=== PATIENT | female | born 2000 | race Caucasian/White ===

== ENCOUNTER 2018-10-29 16:34 | Emergency (ER) | payer BC ==
[2018-10-29] MEDS ORDERED: Ibuprofen TAB* 600 MG PO ONE (16:54)
--- NOTE | 2018-10-29 16:55 | UC ---
Lower Extremity/Ankle HPI - HPI Summary HPI Summary: Patient is a 18yo female presenting with right ankle and foot pain since 2am last night after she twisted her ankle running down a hill. She states she does not remember the initial pain well because she was intoxicated but does note that she was able to continue walking afterward. She said today the pain has progressed and she is unable to walk or bear any weight without excruciating pain. Notes the pain is much better when resting, icing, and not moving the ankle. She rates the pain 6/10 at rest. She has taken ibuprofen for pain relief. Notes swelling and bruising of the right ankle and foot. Notes She denies any numbness. notes some tingling of foot. Denies any leg or knee pain. - History of Current Complaint Chief Complaint: UCLowerExtremity Stated Complaint: RT ANKLE INJ Time Seen by Provider: 10/29/18 16:40 Hx Obtained From: Patient Hx Last Menstrual Period: 3-4 weeks ago Onset/Duration: Sudden Onset, Lasting Hours Severity Initially: Moderate Severity Currently: Moderate Pain Intensity: 5 Pain Scale Used: 0-10 Numeric - Allergies/Home Medications Allergies/Adverse Reactions: Allergies Allergy/AdvReac Type Severity Reaction Status Date / Time No Known Allergies Allergy Verified 10/29/18 16:44 Home Medications: Home Medications Control 1 tab PO DAILY 10/29/18 [History Confirmed 10/29/18] FLUoxetine* [PROzac*] 20 mg PO DAILY 10/29/18 [History Confirmed 10/29/18] Ibuprofen TAB* [Advil TAB*] 800 mg PO Q6H PRN 10/29/18 [History Confirmed ] PMH/Surg Hx/FS Hx/Imm Hx - Surgical History Surgical History: None - Family History Known Family History: Positive: Non-Contributory - Social History Alcohol Use: Weekly Substance Use Type: None Smoking Status (MU): Never Smoked Tobacco Review of Systems All Other Systems Reviewed And Are Negative: Yes Constitutional: Positive: Negative Skin: Positive: Bruising - right ankle and foot Respiratory: Positive: Negative Cardiovascular: Positive: Negative Neurovascular: Negative: Decreased Sensation Musculoskeletal: Positive: Arthralgia - right ankle, Decreased ROM - right ankle , Edema - right ankle. Negative: Calf Tenderness Neurological: Negative: Paresthesia, Numbness Physical Exam Triage Information Reviewed: Yes Appearance: Well-Appearing, No Pain Distress, Well-Nourished Vital Signs: Initial Vital Signs Temp 98.3 F 10/29/18 16:41 Pulse 76 10/29/18 16:41 Resp 16 10/29/18 16:41 BP 109/74 10/29/18 16:41 Pulse Ox 100 10/29/18 16:41 Vital Signs Reviewed: Yes Cardiovascular: Positive: Pulses Normal, Brisk Capillary Refill Musculoskeletal: Positive: Strength Limited @ - right ankle due to pain, ROM Limited @ - right plantarflexion and dorsiflexion due to pain., Edema @ - right anterolateral ankle, Other: - tenderness to palpation of anterolateral aspect of right ankle. tenderness to palpation of dorsal aspect of right foot Neurological Exam: Other - right ankle and foot sensation intact Skin: Positive: Other - areas of ecchymosis noted on dorsal aspect of right foot and lateral aspect of right ankle Diagnostics - Radiology right ankle Radiology Interpretation Completed By: Radiologist Summary of Radiographic Findings: IMPRESSION: SOFT TISSUE SWELLING, NO FRACTURE IS SEEN. right foot Radiology Interpretation Completed By: Radiologist Summary of Radiographic Findings: IMPRESSION: NO EVIDENCE FOR FRACTURE. Lower Extremity Course/Dx - Course Course Of Treatment: Discussed with patient there were no fractures of ankle or foot found on xray. Patient instructed to use rest, ice, compression, and elevation for treatment of ankle sprain. Patient should refrain from physical activity while pain is present. Patient directed to use the CAM boot during the day and the chito wrap at night. She may continue to take ibuprofen as directed for pain relief. If pain persists or worsens, she was directed to follow up with the orthopedic physician or sports medicine. - Differential Dx/Diagnosis Provider Diagnosis: Ankle sprain Discharge ED - Sign-Out/Discharge Documenting (check all that apply): Patient Departure All imaging exams completed and their final reports reviewed: Yes - Discharge Plan Condition: Stable Disposition: HOME Patient Education Materials: Ankle Sprain (ED) Forms: *Physical Education Release Referrals: Bereket Lemus MD [Medical Doctor] - [facility] [Provider Group] Additional Instructions: As discussed, there were no fractures of your ankle or foot found on xray. Use rest, ice, compression, and elevation for treatment of your ankle sprain. Refrain from physical activity while pain is present. Use the CAM boot during the day and the chito wrap at night. You can continue to take ibuprofen as directed for pain relief. If pain persists or worsens, follow up with the orthopedic physician or sports medicine referral as listed below. - Billing Disposition and Condition Condition: STABLE Disposition: Home - Attestation Statements Provider Attestation: I was available for consult. This patient was seen by the CHERYL. The patient was not presented to, seen by, or examined by me. -Rachel
== END 2018-10-29 18:00 | disposition home or self-care (01) ==
LOC: UCEAST 16:34
DX: S93.401A Sprain of unspecified ligament of right ankle, initial encounter (principal); X50.0XXA Overexertion from strenuous movement or load, initial encounter; Y92.89 Other specified places as the place of occurrence of the external cause
CPT/HCPCS: 99203; A9270-GY; G0463